=== PATIENT | male | born 1940 | race Caucasian/White ===

== ENCOUNTER 2017-03-13 10:02 | Inpatient (IN) | payer MEDICARE, BC ==
[~2017-03-13] VITALS: Ht 162.6 cm; Wt 80.3 kg
[~2017-03-13 10:02] MED LIST: ACET-1600 PO; ACYC-114 PO; ALPR0.25 PO; CALC0.25 PO; CALC667C PO; CEPH-376 PO; CHOL100012 PO; CYAN25009 PO; DEXA2TAB PO; FOLI0.8T2 PO; FURO80TA3 PO; HYDR20TA22 PO; HYDR25SU3 PO; LORA10TA75 PO; OMEP-110 PO; OMEP20CA14 PO; OXYC5CAP2 PO; VORI200T2 PO; [UNRECOGNIZED DRUG - CODE] IV
[2017-03-13] MEDS ORDERED: PLEASE ENTER HEIGHT AND WEIGHT MC SCH (10:18)
[2017-03-13] MEDS ORDERED: VANCOMYCIN PER PHARMACY MC ONE (10:30)
[2017-03-13] MEDS ORDERED: ACETAMINOPHEN 500 MG TABLET PO ONE (10:30)
[2017-03-13] MEDS ORDERED: PIPERACILLIN/TAZO/PMX 3.375GM 50 ML IVPB ONE (10:30)
[2017-03-13] MEDS ORDERED: VANCOMYCIN 1,300 MG in SODIUM CHLORIDE 0.9% 250 ML IV ONE (10:30)
[2017-03-13] MEDS ORDERED: SODIUM CHLORIDE FLUSH 10ML SYR IVF ONE (10:30)
[2017-03-13] MEDS ORDERED: SODIUM CHLORIDE 0.9% 1,000ML IVBOLUS ONE ×2 (10:30→12:00)
[2017-03-13] MEDS ORDERED: APIX2.5T PO (10:35)
[2017-03-13] MEDS ORDERED: MEROPENEM 1 GM in SODIUM CHLORIDE 0.9% 100 ML IV ONE (11:00)
[2017-03-13 11:17] LABS: ASPARTATE AMINO TRANSFERASE 10 U/L (15-37); BLOOD UREA NITROGEN 41 mg/dL (7-18)
[2017-03-13 11:23] LABS: IS PT STATUS REG ER OR PRE ER? YES
[2017-03-13 11:31] LABS: HEMATOCRIT 28.2 % (39.2-51.8); HEMOGLOBIN 9.5 g/dL (13.7-18.0); WHITE BLOOD COUNT 2.7 x10^3/uL (3.4-10)
[2017-03-13] MEDS ORDERED: HYDROCORTISONE 100 MG INJ. IVPush STA (11:34)
[2017-03-13 11:35] LABS: DIFF TOTAL CELLS COUNTED 100 CELL DIFF
[2017-03-13 11:38] LABS: ANISOCYTOSIS 1+; VERIFY COUNTS? YES
[2017-03-13] MEDS ORDERED: ACETAMINOPHEN 500 MG TABLET ONE (11:53)
[2017-03-13] MEDS ORDERED: LORazepam 0.5MG TABLET PO ONE (14:00)
[2017-03-13 14:35] VITALS: BP 144/74
[2017-03-13 15:03] VITALS: BP 144/74
[2017-03-13] MEDS ORDERED: hydrALAzine 20 MG/ML, 1ML IVPush PRN (15:30)
[2017-03-13] MEDS ORDERED: morphine SULFATE 10 MG/ML, 1ML IVPush PRN (15:30)
[2017-03-13] MEDS ORDERED: ONDANSETRON 2MG/ML, 2ML IVPush PRN (15:30)
[2017-03-13] MEDS: ACETAMINOPHEN 500 MG TABLET PO SCH ×3 (15:53→21:41)
[2017-03-13] MEDS: SODIUM CHLORIDE 0.9% 1,000 ML IV SCH (15:53)
[2017-03-13] MEDS ORDERED: DIPHENHYDRAMINE 25 MG CAPSULE PO SCH (16:00)
[2017-03-13 20:28] VITALS: BP_SYST 105; BP_SYST 95; BP_DIAS 49; BP_DIAS 60
[2017-03-13] MEDS: HYDROCORTISONE 100 MG INJ. IVPush SCH (21:40)
[2017-03-13] MEDS: APIXABAN 2.5 MG TABLET PO SCH (21:41)
[2017-03-13] MEDS: FOLIC ACID 1 MG TABLET PO SCH (21:41)
[2017-03-13 22:16] LABS: PATH.CAST-FLAG NOT PRESENT; SPERM-FLAG NOT PRESENT; SRC-FLAG NOT PRESENT; XTAL-FLAG NOT PRESENT; YLC-FLAG NOT PRESENT
[2017-03-13] MEDS ORDERED: MEROPENEM 500 MG in SODIUM CHLORIDE 0.9% 100 ML IV SCH (23:30)
[2017-03-14] MEDS: MEROPENEM 500 MG in SODIUM CHLORIDE 0.9% 100 ML IV SCH (01:39)
[2017-03-14 03:17] VITALS: BP 158/89
[2017-03-14] MEDS: HYDROCORTISONE 100 MG INJ. IVPush SCH ×3 (04:00→20:14)
[2017-03-14] MEDS: ACETAMINOPHEN 500 MG TABLET PO SCH ×4 (05:09→21:00)
[2017-03-14 06:31] LABS: ASPARTATE AMINO TRANSFERASE 15 U/L (15-37); BLOOD UREA NITROGEN 54 mg/dL (7-18); HEMATOCRIT 24.5 % (39.2-51.8); HEMOGLOBIN 8.4 g/dL (13.7-18.0); WHITE BLOOD COUNT 2.8 x10^3/uL (3.4-10)
[2017-03-14] MEDS: SODIUM CHLORIDE 0.9% 1,000 ML IV SCH (06:39)
[2017-03-14 07:05] LABS: DIFF TOTAL CELLS COUNTED 100 CELL DIFF
[2017-03-14] MEDS: LORazepam 1MG TABLET PO SCH (07:20)
[2017-03-14 07:27] LABS: ANISOCYTOSIS 1+; POLYCHROMASIA 1+; VERIFY COUNTS? YES
[2017-03-14] MEDS ORDERED: PANTOPROZOLE 40MG TABLET PO SCH (07:30)
[2017-03-14 07:56] VITALS: BP 154/88
[2017-03-14] MEDS: APIXABAN 2.5 MG TABLET PO SCH ×2 (11:59→20:15)
[2017-03-14] MEDS: CYANOCOBALAMIN 1,000 MCG TABLET PO SCH (11:59)
[2017-03-14] MEDS: OMEPRAZOLE 20 MG CAPSULE.DR PO SCH (11:59)
[2017-03-14] MEDS: ACYCLOVIR 400 MG TABLET PO SCH (12:00)
[2017-03-14] MEDS: CHOLECALCIFEROL 1,000 UNIT TABLET PO SCH (12:00)
[2017-03-14] MEDS: FOLIC ACID 1 MG TABLET PO SCH ×2 (12:00→21:00)
[2017-03-14] MEDS ORDERED: MAGNESIUM SULFATE PMX 2GM/50ML 50 ML IV ONE (15:00)
[2017-03-14] MEDS ORDERED: OMNIPAQUE 350 MG/ML, 75ML BOTTLE ONE (15:12)
[2017-03-14 15:27] VITALS: BP 136/74
[2017-03-14] MEDS ORDERED: PANTOPRAZOLE MC SCH (16:30)
[2017-03-14] MEDS ORDERED: OMEPRAZOLE MC SCH (16:30)
[2017-03-14 20:00] VITALS: BP 161/84
[2017-03-15] MEDS: MEROPENEM 500 MG in SODIUM CHLORIDE 0.9% 100 ML IV SCH (01:09)
[2017-03-15 01:41] VITALS: BP 171/81
[2017-03-15] MEDS: HYDROCORTISONE 100 MG INJ. IVPush SCH (05:00)
[2017-03-15] MEDS: SODIUM CHLORIDE 0.9% 1,000 ML IV SCH ×2 (05:00→18:41)
[2017-03-15 05:03] LABS: HEMOGLOBIN 7.7 g/dL (13.7-18.0); WHITE BLOOD COUNT 2.5 x10^3/uL (3.4-10)
[2017-03-15 05:09] LABS: HEMATOCRIT 22.4 % (39.2-51.8)
[2017-03-15 05:11] LABS: ASPARTATE AMINO TRANSFERASE 6 U/L (15-37); BLOOD UREA NITROGEN 42 mg/dL (7-18)
[2017-03-15] MEDS: ACETAMINOPHEN 500 MG TABLET PO SCH ×4 (05:58→21:00)
[2017-03-15 07:00] VITALS: BP 172/81
[2017-03-15] MEDS: APIXABAN 2.5 MG TABLET PO SCH ×2 (09:20→23:02)
[2017-03-15] MEDS: FOLIC ACID 1 MG TABLET PO SCH ×2 (09:22→23:03)
[2017-03-15] MEDS: CYANOCOBALAMIN 1,000 MCG TABLET PO SCH (09:22)
[2017-03-15] MEDS: CHOLECALCIFEROL 1,000 UNIT TABLET PO SCH (09:22)
[2017-03-15] MEDS: ACYCLOVIR 400 MG TABLET PO SCH (09:22)
[2017-03-15] MEDS: OMEPRAZOLE 20 MG CAPSULE.DR PO SCH (09:22)
[2017-03-15] MEDS ORDERED: HYDROCORTISONE 20 MG TABLET PO SCH (11:30)
[2017-03-15 15:22] VITALS: BP 107/67
[2017-03-15 18:23] VITALS: BP 146/73
[2017-03-15] MEDS ORDERED: MEROPENEM 500 MG in SODIUM CHLORIDE 0.9% 50 ML IV SCH (23:11)
[2017-03-16] MEDS: ACETAMINOPHEN 325 MG TABLET PO PRN (01:38)
[2017-03-16 03:04] VITALS: BP 152/69
[2017-03-16] MEDS: ACETAMINOPHEN 500 MG TABLET PO SCH ×4 (06:03→22:10)
[2017-03-16] MEDS: SODIUM CHLORIDE 0.9% 1,000 ML IV SCH ×2 (06:03→22:00)
[2017-03-16 06:25] LABS: HEMOGLOBIN 7.9 g/dL (13.7-18.0)
[2017-03-16 06:26] LABS: BLOOD UREA NITROGEN 59 mg/dL (7-18)
[2017-03-16 06:29] LABS: HEMATOCRIT 22.9 % (39.2-51.8)
[2017-03-16 06:51] VITALS: BP 159/88
[2017-03-16] MEDS ORDERED: LORazepam 0.5MG TABLET ONE (09:11)
[2017-03-16] MEDS: CYANOCOBALAMIN 1,000 MCG TABLET PO SCH (09:17)
[2017-03-16] MEDS: HYDROCORTISONE 100 MG INJ. IVPush SCH (09:17)
[2017-03-16] MEDS: FOLIC ACID 1 MG TABLET PO SCH ×2 (09:17→22:04)
[2017-03-16] MEDS: OMEPRAZOLE 20 MG CAPSULE.DR PO SCH (09:17)
[2017-03-16] MEDS: CHOLECALCIFEROL 1,000 UNIT TABLET PO SCH (09:17)
[2017-03-16] MEDS: APIXABAN 2.5 MG TABLET PO SCH ×2 (09:18→22:04)
[2017-03-16] MEDS: ACYCLOVIR 400 MG TABLET PO SCH ×2 (09:19→13:37)
[2017-03-16] MEDS: LORazepam 1MG TABLET PO SCH (09:19)
[2017-03-16 15:05] VITALS: BP 146/76
[2017-03-16 18:49] VITALS: BP 124/69
[2017-03-16 19:14] VITALS: BP 147/84
[2017-03-17] MEDS: OXYcodone IR 5MG TABLET PO PRN ×2 (02:56→11:57)
[2017-03-17 03:10] VITALS: BP 174/80
[2017-03-17] MEDS: ACETAMINOPHEN 500 MG TABLET PO SCH ×3 (06:00→16:00)
[2017-03-17] MEDS: ACETAMINOPHEN 325 MG TABLET PO PRN (07:42)
[2017-03-17 08:49] VITALS: BP 128/70
[2017-03-17] MEDS: HYDROCORTISONE 100 MG INJ. IVPush SCH (09:09)
[2017-03-17] MEDS: CHOLECALCIFEROL 1,000 UNIT TABLET PO SCH (09:09)
[2017-03-17] MEDS: FOLIC ACID 1 MG TABLET PO SCH (09:09)
[2017-03-17] MEDS: OMEPRAZOLE 20 MG CAPSULE.DR PO SCH (09:09)
[2017-03-17] MEDS: ACYCLOVIR 400 MG TABLET PO SCH (09:09)
[2017-03-17] MEDS: CYANOCOBALAMIN 1,000 MCG TABLET PO SCH (09:09)
[2017-03-17] MEDS: APIXABAN 2.5 MG TABLET PO SCH (09:15)
[2017-03-17] MEDS: SODIUM CHLORIDE 0.9% 1,000 ML IV SCH (11:00)
[2017-03-17] MEDS ORDERED: HYDR20TA PO (11:15)
[2017-03-17] MEDS ORDERED: HYDR20TA22 PO (11:15)
[2017-03-17 13:58] VITALS: BP 128/75
[2017-03-20 15:06] LABS: FUNGITELL RESULT 357 pg/mL (<80)
== END 2017-03-17 18:07 | disposition home or self-care (01) | DRG 871 ==
LOC: ED 10:18 → EDIP 12:32 → 4EST 13:26
PROVIDERS: ADMIT Hospitalist; ATTEND Family Medicine
PROC: 02HV33Z Insertion of Infusion Device into Superior Vena Cava, Percutaneous Approach (ICD-10-PCS; principal; 2017-03-13)
PROC: 5A1D70Z Performance of Urinary Filtration, Intermittent, Less than 6 Hours Per Day (ICD-10-PCS; 2017-03-14)
PROC: 5A1D70Z Performance of Urinary Filtration, Intermittent, Less than 6 Hours Per Day (ICD-10-PCS; 2017-03-16)
DX: A41.9 Sepsis, unspecified organism (principal); J15.9 Unspecified bacterial pneumonia; J96.01 Acute respiratory failure with hypoxia; E43 Unspecified severe protein-calorie malnutrition; G93.40 Encephalopathy, unspecified; D61.818 Other pancytopenia; C85.90 Non-Hodgkin lymphoma, unspecified, unspecified site; I82.623 Acute embolism and thrombosis of deep veins of upper extremity, bilateral; D68.59 Other primary thrombophilia; N18.6 End stage renal disease; E27.40 Unspecified adrenocortical insufficiency; N39.0 Urinary tract infection, site not specified; C88.0 Waldenstrom macroglobulinemia; Z96.1 Presence of intraocular lens; E55.9 Vitamin D deficiency, unspecified; D63.1 Anemia in chronic kidney disease; J43.9 Emphysema, unspecified; N25.0 Renal osteodystrophy; Z79.01 Long term (current) use of anticoagulants; Z82.3 Family history of stroke; Z82.49 Family history of ischemic heart disease and other diseases of the circulatory system; Z87.891 Personal history of nicotine dependence; Z99.2 Dependence on renal dialysis; Z87.01 Personal history of pneumonia (recurrent); Z68.30 Body mass index [BMI] 30.0-30.9, adult
CPT/HCPCS: 36415; 36556; 71010; 71260; 80048; 80053; 80202; 81001; 83605; 83735; 84100; 84145; 84484; 85025; 85610; 85730; 86331; 86602; 86606; 86609; 86671; 87040; 87070; 87205; 87305; 87449; 93005; 96365; 96368; 96375; J2185; J3370; Q9967; J1720; J3475; J7030; J7050

== ENCOUNTER 2017-03-28 11:10 | Inpatient (IN) | payer MEDICARE, BC ==
[~2017-03-28] VITALS: Ht 180.3 cm; Wt 77.6 kg
[~2017-03-28 11:10] MED LIST changes: +APIX2.5T PO; +HYDR20TA PO
[2017-03-28] MEDS ORDERED: SODIUM CHLORIDE FLUSH 10ML SYR IVF ONE (12:00)
[2017-03-28] MEDS ORDERED: SODIUM CHLORIDE 0.9% 1,000ML IVBOLUS ONE (12:00)
[2017-03-28 12:38] LABS: ASPARTATE AMINO TRANSFERASE 13 U/L (15-37); BLOOD UREA NITROGEN 63 mg/dL (7-18)
[2017-03-28 12:59] LABS: DIFF TOTAL CELLS COUNTED 100 CELL DIFF; HEMATOCRIT 23.7 % (39.2-51.8); HEMOGLOBIN 8.1 g/dL (13.7-18.0); WHITE BLOOD COUNT 3.7 x10^3/uL (3.4-10)
[2017-03-28 13:03] LABS: ANISOCYTOSIS 1+; OVALOCYTES 1+; VERIFY COUNTS? YES
[2017-03-28 13:07] LABS: POLYCHROMASIA 1+
[2017-03-28] MEDS ORDERED: SODIUM CHLORIDE FLUSH 10ML SYR IVF PRN (15:00)
[2017-03-28] MEDS ORDERED: PLEASE ENTER HEIGHT AND WEIGHT MC SCH (15:04)
[2017-03-28] MEDS ORDERED: DOCUSATE 100 MG CAPSULE PO PRN (15:30)
[2017-03-28] MEDS ORDERED: LABETALOL 5MG/ML, 20ML IVPush PRN (15:30)
[2017-03-28] MEDS ORDERED: ONDANSETRON 2MG/ML, 2ML IVPush PRN (15:30)
[2017-03-28] MEDS ORDERED: HYDROCORTISONE 10 MG TABLET PO PRN (15:30)
[2017-03-28] MEDS ORDERED: ACETAMINOPHEN 325 MG TABLET PO PRN (15:30)
[2017-03-28] MEDS ORDERED: BISACODYL 10 MG SUPP PR PRN (15:30)
[2017-03-28] MEDS ORDERED: ONDANSETRON ODT 4 MG PO PRN (15:30)
[2017-03-28] MEDS ORDERED: ALBUTEROL/IPRATROPIUM 2.5MG/0.5MG, 3 ML NPPB PRN (16:00)
[2017-03-28] MEDS ORDERED: LORazepam 0.5MG TABLET PO ONE (16:30)
[2017-03-28 18:04] VITALS: BP 170/112
[2017-03-28 19:37] LABS: PATH.CAST-FLAG NOT PRESENT; SPERM-FLAG NOT PRESENT; SRC-FLAG NOT PRESENT; XTAL-FLAG NOT PRESENT; YLC-FLAG NOT PRESENT
[2017-03-28] MEDS: APIXABAN 2.5 MG TABLET PO SCH (22:32)
[2017-03-28] MEDS ORDERED: ACYCLOVIR 400 MG TABLET PO SCH (22:50)
[2017-03-28 23:33] VITALS: BP 146/64
[2017-03-29 00:27] VITALS: BP 146/64
[2017-03-29 02:00] VITALS: BP 155/76
[2017-03-29 05:54] LABS: HEMATOCRIT 23.7 % (39.2-51.8); HEMOGLOBIN 8.1 g/dL (13.7-18.0); WHITE BLOOD COUNT 2.8 x10^3/uL (3.4-10)
[2017-03-29 05:56] LABS: BLOOD UREA NITROGEN 29 mg/dL (7-18)
[2017-03-29 06:00] LABS: ASPARTATE AMINO TRANSFERASE 15 U/L (15-37)
[2017-03-29 06:26] LABS: DIFF TOTAL CELLS COUNTED 100 CELL DIFF
[2017-03-29 06:28] LABS: VERIFY COUNTS? YES
[2017-03-29 06:29] LABS: ANISOCYTOSIS 1+; OVALOCYTES 1+; POLYCHROMASIA 1+
[2017-03-29 08:00] VITALS: BP 144/66
[2017-03-29] MEDS ORDERED: SENNA/DOCUSATE TABLET PO SCH (09:00)
[2017-03-29] MEDS ORDERED: OMEPRAZOLE 20 MG CAPSULE.DR PO SCH (09:00)
[2017-03-29] MEDS ORDERED: CALCITRIOL 0.25 MCG CAPSULE PO SCH (09:00)
[2017-03-29] MEDS ORDERED: HYDROCORTISONE 20 MG TABLET PO SCH (09:00)
[2017-03-29] MEDS ORDERED: ACYCLOVIR 400 MG TABLET PO SCH (09:00)
[2017-03-29 09:45] LABS: HEP B SURF. AB 25.1 mIU/mL (0.0-10.0)
[2017-03-29] MEDS: APIXABAN 2.5 MG TABLET PO SCH (10:50)
[2017-03-29] MEDS ORDERED: LORazepam 0.5MG TABLET PO PRN (13:30)
[2017-03-29 14:00] VITALS: BP 159/71
== END 2017-03-29 20:00 | disposition home or self-care (01) | DRG 682 ==
LOC: ED 14:58 → EDIP 14:59 → ED 16:15 → 4WST 16:47
PROVIDERS: ADMIT Family Medicine; ATTEND Family Medicine
PROC: 5A1D70Z Performance of Urinary Filtration, Intermittent, Less than 6 Hours Per Day (ICD-10-PCS; principal; 2017-03-28)
PROC: 5A1D70Z Performance of Urinary Filtration, Intermittent, Less than 6 Hours Per Day (ICD-10-PCS; 2017-03-29)
DX: I12.0 Hypertensive chronic kidney disease with stage 5 chronic kidney disease or end stage renal disease (principal); G93.40 Encephalopathy, unspecified; J96.01 Acute respiratory failure with hypoxia; E43 Unspecified severe protein-calorie malnutrition; D61.818 Other pancytopenia; I82.623 Acute embolism and thrombosis of deep veins of upper extremity, bilateral; D68.59 Other primary thrombophilia; E27.40 Unspecified adrenocortical insufficiency; C88.0 Waldenstrom macroglobulinemia; N18.6 End stage renal disease; N25.81 Secondary hyperparathyroidism of renal origin; J44.0 Chronic obstructive pulmonary disease with (acute) lower respiratory infection; D63.1 Anemia in chronic kidney disease; E83.52 Hypercalcemia; F41.9 Anxiety disorder, unspecified; N25.0 Renal osteodystrophy; Z79.01 Long term (current) use of anticoagulants; Z82.3 Family history of stroke; Z82.49 Family history of ischemic heart disease and other diseases of the circulatory system; Z87.01 Personal history of pneumonia (recurrent); Z87.891 Personal history of nicotine dependence; Z99.2 Dependence on renal dialysis; Z99.81 Dependence on supplemental oxygen; Z68.23 Body mass index [BMI] 23.0-23.9, adult
CPT/HCPCS: 36415; 71010; 80053; 81001; 82533; 83605; 83735; 84100; 84145; 85025; 85610; 85730; 86704; 86706; 87040; 87340; 93005; 99285; J7030

== ENCOUNTER 2017-05-21 23:37 | Inpatient (IN) | payer MEDICARE, BC ==
[~2017-05-21] VITALS: Ht 180.3 cm; Wt 71.2 kg
[2017-05-22] MEDS ORDERED: SODIUM CHLORIDE FLUSH 10ML SYR IVF ONE
[2017-05-22 00:20] LABS: MEAN CORPUSCULAR HEMOGLOBIN 34.9 pg (27.5-34.5); MEAN CORPUSCULAR HGB CONC 32.9 g/dL (33.2-36.2); MEAN PLATELET VOLUME 6.7 fL (7.4-10.4); PLATELET COUNT 117 x10^3/uL (130-400); RED BLOOD COUNT 3.31 x10^6/uL (4.38-5.82); RED CELL DISTRIBUTION WIDTH 15.8 % (9.4-14.8)
[2017-05-22 00:21] LABS: BASOPHILS % (AUTO) 0 % (0-1); EOSINOPHILS # (AUTO) 0.01 x10^3/uL (0-0.4); EOSINOPHILS % (AUTO) 0 % (1-7); LYMPHOCYTES # (AUTO) 0.25 x10^3/uL (1-3.4); LYMPHOCYTES % (AUTO) 9 % (22-44); MD NO; MONOCYTES # (AUTO) 0.19 x10^3/uL (0.2-0.8); MONOCYTES % (AUTO) 7 % (2-9); NEUTROPHILS # (AUTO) 2.41 x10^3/uL (1.8-6.8); NEUTROPHILS % (AUTO) 84 % (42-75)
[2017-05-22 00:27] LABS: INTERNATIONAL NORMALIZED RATIO 1.07 (0.93-1.1); PROTHROMBIN TIME 11.1 Seconds (9.6-11.5)
[2017-05-22 00:29] LABS: ALANINE AMINOTRANSFERASE 11 U/L (12-78); ALBUMIN 3.1 g/dL (3.4-5.0); ANION GAP 12 mmol/L (5-15); CHLORIDE 100 mmol/L (98-107); CREATININE 5.63 mg/dL (0.7-1.3)
[2017-05-22 00:32] LABS: ALKALINE PHOSPHATASE 99 U/L (45-117); BILIRUBIN,TOTAL 0.5 mg/dL (0.2-1.0); TOTAL PROTEIN 6.5 g/dL (6.4-8.2)
[2017-05-22] MEDS ORDERED: TRAM50TA2 PO (00:55)
[2017-05-22] MEDS ORDERED: FOLI0.8T2 PO (01:40)
[2017-05-22] MEDS ORDERED: SENN-99 PO (01:40)
[2017-05-22] MEDS ORDERED: SEVE800T8 PO (01:40)
[2017-05-22] MEDS ORDERED: HYDR10TA PO (01:40)
[2017-05-22] MEDS ORDERED: SENN-31 PO (01:40)
[2017-05-22] MEDS ORDERED: LORA10TA75 PO (01:40)
[2017-05-22] MEDS ORDERED: DIFL5DRO OP (01:41)
[2017-05-22] MEDS ORDERED: SODIUM CHLORIDE 0.9% 1,000 ML IV SCH (01:58)
[2017-05-22] MEDS ORDERED: DOCUSATE 100 MG CAPSULE PO PRN (02:00)
[2017-05-22] MEDS ORDERED: HYDROCORTISONE 20 MG TABLET PO SCH (02:00)
[2017-05-22] MEDS ORDERED: POLYETHYLENE GLYCOL 17 GM PACKET PO PRN (02:00)
[2017-05-22] MEDS ORDERED: ONDANSETRON 2MG/ML, 2ML IVPush PRN (02:00)
[2017-05-22] MEDS ORDERED: SODIUM CHLORIDE FLUSH 10ML SYR IVF PRN (02:00)
[2017-05-22 03:12] VITALS: BP 189/79
[2017-05-22] MEDS: hydrALAzine 20 MG/ML, 1ML IV PRN (03:43)
[2017-05-22] MEDS: ACETAMINOPHEN 325 MG TABLET PO PRN ×3 (03:52→23:48)
[2017-05-22] MEDS: DIFLUPREDNATE OP SCH ×4 (05:28→21:00)
[2017-05-22 07:11] VITALS: BP 179/82
[2017-05-22] MEDS: SEVELAMER 800MG TABLET PO SCH ×4 (08:00→17:00)
[2017-05-22] MEDS: LORATADINE 10 MG TABLET PO SCH ×2 (08:27→09:00)
[2017-05-22] MEDS: SENNA/DOCUSATE TABLET PO SCH (08:27)
[2017-05-22] MEDS: SENNOSIDES 8.6 MG TABLET PO SCH (08:28)
[2017-05-22] MEDS: APIXABAN 2.5 MG TABLET PO SCH ×2 (08:28→21:32)
[2017-05-22] MEDS: LABETALOL 5MG/ML, 20ML IVPush PRN ×2 (08:29→23:16)
[2017-05-22] MEDS: FOLIC ACID 1 MG TABLET PO SCH ×2 (08:40→09:00)
[2017-05-22] MEDS ORDERED: HYDROCORTISONE 10 MG TABLET PO SCH (09:00)
[2017-05-22] MEDS ORDERED: FOLIC ACID 1 MG TABLET PO SCH (09:00)
[2017-05-22 10:24] VITALS: BP 164/81
[2017-05-22 20:00] VITALS: BP 179/73
[2017-05-22] MEDS ORDERED: OXYcodone IR 5MG TABLET PO ONE (21:00)
[2017-05-22 23:00] VITALS: BP 199/100
[2017-05-23] MEDS: hydrALAzine 20 MG/ML, 1ML IV PRN (01:53)
[2017-05-23 02:00] VITALS: BP 187/89
[2017-05-23 04:37] VITALS: BP 149/73
[2017-05-23] MEDS: DIFLUPREDNATE OP SCH ×4 (05:49→21:00)
[2017-05-23 07:44] VITALS: BP 151/86
[2017-05-23] MEDS: SEVELAMER 800MG TABLET PO SCH ×4 (08:00→19:39)
[2017-05-23] MEDS: SENNOSIDES 8.6 MG TABLET PO SCH (09:00)
[2017-05-23] MEDS ORDERED: HYDROCORTISONE 5 MG TABLET PO SCH (09:00)
[2017-05-23] MEDS ORDERED: LORazepam 2 MG/ML, 1ML IVPush ONE ×2 (09:00→13:00)
[2017-05-23] MEDS: SENNA/DOCUSATE TABLET PO SCH (09:00)
[2017-05-23] MEDS: HYDROCORTISONE 10 MG TABLET PO SCH (10:05)
[2017-05-23] MEDS: APIXABAN 2.5 MG TABLET PO SCH (10:05)
[2017-05-23 11:16] LABS: ANION GAP 12 mmol/L (5-15); CALCIUM 10.1 mg/dL (8.5-10.1); CHLORIDE 99 mmol/L (98-107)
[2017-05-23] MEDS: FOLIC ACID 1 MG TABLET PO SCH (11:24)
[2017-05-23] MEDS: LORATADINE 10 MG TABLET PO SCH (11:25)
[2017-05-23 11:28] LABS: FREE T4 (FREE THYROXINE) 1.41 ng/dL (0.76-1.46)
[2017-05-23] MEDS ORDERED: METHOCARBAMOL 500 MG TABLET PO PRN (11:30)
[2017-05-23] MEDS: GABAPENTIN 100 MG CAPSULE PO SCH ×3 (11:54→21:32)
[2017-05-23] MEDS: ACETAMINOPHEN 500 MG TABLET PO SCH ×2 (11:54→21:33)
[2017-05-23 12:52] VITALS: BP 177/83
[2017-05-23 20:00] VITALS: BP 125/70
[2017-05-23] MEDS: APIXABAN 5 MG TABLET PO SCH (21:32)
[2017-05-24 02:00] VITALS: BP 158/78
[2017-05-24] MEDS: DIFLUPREDNATE OP SCH ×3 (05:26→16:00)
[2017-05-24 06:07] LABS: MEAN CORPUSCULAR HEMOGLOBIN 35.2 pg (27.5-34.5); MEAN CORPUSCULAR HGB CONC 33.1 g/dL (33.2-36.2); MEAN CORPUSCULAR VOLUME 106.1 fL (81-97); MEAN PLATELET VOLUME 6.8 fL (7.4-10.4); PLATELET COUNT 103 x10^3/uL (130-400); RED BLOOD COUNT 3.08 x10^6/uL (4.38-5.82); RED CELL DISTRIBUTION WIDTH 15.8 % (9.4-14.8)
[2017-05-24 06:22] LABS: CHLORIDE 98 mmol/L (98-107)
[2017-05-24 06:43] LABS: BASOPHILS # (AUTO) 0.03 x10^3/uL (0-0.1); BASOPHILS % (AUTO) 1 % (0-1); EOSINOPHILS # (AUTO) 0.07 x10^3/uL (0-0.4); EOSINOPHILS % (AUTO) 2 % (1-7); LYMPHOCYTES # (AUTO) 0.48 x10^3/uL (1-3.4); LYMPHOCYTES % (AUTO) 17 % (22-44); MD SCAN; MONOCYTES # (AUTO) 0.31 x10^3/uL (0.2-0.8); MONOCYTES % (AUTO) 11 % (2-9); NEUTROPHILS # (AUTO) 1.86 x10^3/uL (1.8-6.8); NEUTROPHILS % (AUTO) 68 % (42-75)
[2017-05-24 06:53] VITALS: BP 149/77
[2017-05-24 06:59] LABS: ALBUMIN 2.9 g/dL (3.4-5.0)
[2017-05-24 07:03] LABS: % IRON SATURATION 19 % (20-55); ALANINE AMINOTRANSFERASE 11 U/L (12-78); ALKALINE PHOSPHATASE 93 U/L (45-117); ANION GAP 9 mmol/L (5-15); BILIRUBIN,TOTAL 0.4 mg/dL (0.2-1.0); CREATININE 5.77 mg/dL (0.7-1.3); IRON LEVEL 40 mcg/dL (65-175); TOTAL IRON BINDING CAPACITY 206 mcg/dL (250-450); TOTAL PROTEIN 5.8 g/dL (6.4-8.2)
[2017-05-24] MEDS: LORATADINE 10 MG TABLET PO SCH (08:24)
[2017-05-24] MEDS: FOLIC ACID 1 MG TABLET PO SCH (08:24)
[2017-05-24] MEDS: APIXABAN 5 MG TABLET PO SCH (08:24)
[2017-05-24] MEDS: HYDROCORTISONE 10 MG TABLET PO SCH (08:25)
[2017-05-24] MEDS: GABAPENTIN 100 MG CAPSULE PO SCH ×2 (08:25→16:27)
[2017-05-24] MEDS: ACETAMINOPHEN 500 MG TABLET PO SCH (08:25)
[2017-05-24] MEDS: SEVELAMER 800MG TABLET PO SCH ×2 (08:26→12:47)
[2017-05-24] MEDS: SENNA/DOCUSATE TABLET PO SCH (08:26)
[2017-05-24] MEDS: SENNOSIDES 8.6 MG TABLET PO SCH (08:27)
[2017-05-24] MEDS ORDERED: HYDROCORTISONE 10 MG TABLET PO SCH (09:00)
[2017-05-24] MEDS ORDERED: HYDROCORTISONE 5 MG TABLET PO SCH (09:00)
[2017-05-24 12:09] VITALS: BP 142/80
[2017-05-24] MEDS ORDERED: MELO15TA24 PO (14:25)
[2017-05-24] MEDS ORDERED: HYDR10TA PO (14:25)
[2017-05-24] MEDS ORDERED: GABA-826 PO (14:25)
[2017-05-24] MEDS ORDERED: HYDR5TAB2 PO (14:25)
[2017-05-24] MEDS ORDERED: ACET500T71 PO (14:25)
[2017-05-24] MEDS ORDERED: METH500T7 PO (14:25)
== END 2017-05-24 17:01 | disposition home health service (06) | DRG 91 ==
LOC: ED 05-22 00:16 → SUATTDRO 05-22 01:42 → EDIP 05-22 01:46 → 4EST 05-22 02:53
PROVIDERS: ADMIT Family Medicine; ATTEND Family Medicine
PROC: 5A1D70Z Performance of Urinary Filtration, Intermittent, Less than 6 Hours Per Day (ICD-10-PCS; principal; 2017-05-23)
DX: G92 Toxic encephalopathy (principal); E43 Unspecified severe protein-calorie malnutrition; D61.818 Other pancytopenia; J96.10 Chronic respiratory failure, unspecified whether with hypoxia or hypercapnia; E27.40 Unspecified adrenocortical insufficiency; D68.69 Other thrombophilia; C88.0 Waldenstrom macroglobulinemia; N18.6 End stage renal disease; I12.0 Hypertensive chronic kidney disease with stage 5 chronic kidney disease or end stage renal disease; J98.11 Atelectasis; M48.56XA Collapsed vertebra, not elsewhere classified, lumbar region, initial encounter for fracture; Z99.81 Dependence on supplemental oxygen; Z68.21 Body mass index [BMI] 21.0-21.9, adult; J44.9 Chronic obstructive pulmonary disease, unspecified; G89.29 Other chronic pain; M54.10 Radiculopathy, site unspecified; T40.4X5A Adverse effect of other synthetic narcotics, initial encounter; N25.0 Renal osteodystrophy; Z79.01 Long term (current) use of anticoagulants; Z82.49 Family history of ischemic heart disease and other diseases of the circulatory system; Z85.72 Personal history of non-Hodgkin lymphomas; Z86.718 Personal history of other venous thrombosis and embolism; Z87.01 Personal history of pneumonia (recurrent); Z87.891 Personal history of nicotine dependence; Z99.2 Dependence on renal dialysis; Y92.89 Other specified places as the place of occurrence of the external cause
CPT/HCPCS: 36415; 70450; 70551; 71045; 72148; 80048; 80053; 82306; 82728; 83540; 83550; 83605; 83735; 83970; 84100; 84439; 84443; 84550; 85025; 85610; 85730; 87040; 93005; 99285; J2405; 92523-GN; J0360; J2060; J7030